=== PATIENT | male | born 1935 | race Caucasian/White ===

== ENCOUNTER → 2018-11-24 12:03 | Outpatient (CLI) | payer MEDICARE, OTHER | END | disposition home or self-care (01) | LOC: D.CT 12:03 | PROVIDERS: ATTEND Family Medicine | DX: R10.31 Right lower quadrant pain (principal) ==

== ENCOUNTER → 2018-11-30 08:51 | Outpatient (CLI) | payer MEDICARE, OTHER | END | disposition home or self-care (01) | LOC: D.US 08:51 | PROVIDERS: ATTEND Family Medicine | DX: R93.2 Abnormal findings on diagnostic imaging of liver and biliary tract (principal) ==